=== PATIENT | female | born 1955 | race Caucasian/White ===

== ENCOUNTER 2025-03-10 18:07 | Outpatient (REF) | payer MEDICARE, SELFPAY ==
[2025-03-10 18:55] LABS: Abs Immature Grans 0.03 10^3/uL (0.0-0.06); HCT 44.9 % (36.0-46.0); HGB 14.8 g/dL (11.2-15.7); Immature Grans % 0.3 %; MCH 29.6 pg (27.0-33.0); MCHC 33.0 % (32.0-36.0); MCV 90 fL (80-95); MPV 12.8 fL (8.0-11.0); Platelet Count 166 10^3/uL (130-400); RBC 5.00 10^6/uL (3.93-5.22); RDW 13.2 % (11.7-14.6); RDW-SD 43.5 fL; WBC 9.53 10^3/uL (4.4-10.8)
[2025-03-10 19:15] LABS: Iron 48 ug/dL (50-170); Total Iron Binding Capacity 352 ug/dL (250-450)
[2025-03-10 19:17] LABS: Hemoglobin A1C 5.9 % (<5.7)
[2025-03-10 19:40] LABS: ALT 21 U/L (14-59); AST 17 U/L (15-37); Albumin 3.7 g/dL (3.4-5.0); Alkaline Phosphatase 93 U/L (46-116); Anion Gap 8.6 mmol/L (3-11); BUN 11 mg/dL (7-18); Bilirubin, Total 0.5 mg/dL (0.2-1.0); CO2 30.4 mmol/L (21.0-32.0); Calcium 9.8 mg/dL (8.5-10.1); Calculated LDL 156 mg/dL (<100); Chloride 102 mmol/L (98-107); Cholesterol 229 mg/dL (<200); Estimated GFR 95.90 (mL/min/1.73m2); Folate 20.0 ng/mL (8.6-20.0); Glucose 92 mg/dL (74-106); HDL Cholesterol 57 mg/dL (>or=50); Potassium 4.3 mmol/L (3.5-5.1); Sodium 141 mmol/L (136-145); TSH 0.61 uIU/mL (0.36-3.74); Total Protein 7.1 g/dL (6.4-8.2); Triglyceride 82 mg/dL (<150); Vitamin B12 536 pg/mL (193-986); Vitamin D 25 Total 75 ng/mL (30-100)
== END 2025-03-10 18:08 | disposition home or self-care (01) ==
LOC: NCHCN 18:07
PROVIDERS: Visit Provider Family Medicine
DX: Z78.0 Asymptomatic menopausal state (principal); R53.83 Other fatigue
CPT/HCPCS: 80053; 80061; 82306; 82607; 82746; 83036; 83540; 83550; 84443; 85025